=== PATIENT | female | born 1985 ===

== ENCOUNTER 2018-07-06 11:31 | Emergency (ER) | payer OTHER ==
[2018-07-06 11:32] VITALS: BMI 23.8
[2018-07-06 11:46] VITALS: O2SAT 100
[2018-07-06] MEDS ORDERED: Dextrose 5%/0.45% NS 1,000 ML IV SCH (14:00)
[2018-07-06 14:04] LABS: BASO % 0.4 % (0.0-2.0); EOS # 0.1 K/uL (0.0-0.7); EOS % 0.7 % (0.0-4.0); HEMOGLOBIN 13.7 g/dL (11.0-16.0); LYMPH # 2.8 K/uL (1.0-4.3); LYMPH % 36.3 % (20.0-40.0); MEAN CELL VOLUME 87.9 fL (81.0-99.0); MEAN CORPUSCULAR HEMOGLOBIN 29.4 pg (27.0-31.0); MEAN CORPUSCULAR HGB CONC 33.5 g/dL (33.0-37.0); MEAN PLATELET VOLUME 8.3 fL (7.2-11.7); MONO # 0.6 K/uL (0.0-0.8); MONO % 7.1 % (0.0-10.0); NEUT # 4.4 K/uL (1.8-7.0); NEUT % 55.5 % (50.0-75.0); RBC 4.66 Mil/uL (3.80-5.20); RED CELL DISTRIBUTION WIDTH 14.3 % (11.5-14.5); WHITE BLOOD COUNT 7.8 K/uL (4.8-10.8)
[2018-07-06 14:15] LABS: SQUAMOUS EPITHIAL < 1 /hpf (0-5); URINE BACTERIA RARE (<OCC); URINE BILIRUBIN NEGATIVE (NEGATIVE); URINE BLOOD 1+ (NEGATIVE); URINE CLARITY Clear (Clear); URINE COLOR Colorless (YELLOW); URINE GLUCOSE (UA) NORMAL (Normal); URINE LEUKOCYTE ESTERASE NEG Leu/uL (Negative); URINE PROTEIN NEGATIVE (NEGATIVE); URINE UROBILINOGEN NORMAL mg/dL (0.2-1.0)
[2018-07-06 14:18] LABS: ALB/GLOB RATIO 1.3 (1.0-2.1); ALBUMIN 4.1 g/dL (3.5-5.0); ALT/SGPT 27 U/L (9-52); AST/SGOT 25 U/L (14-36); BLOOD UREA NITROGEN 4 mg/dL (7-17); CALCIUM 8.9 mg/dl (8.6-10.4); GFR NON-AFRICAN AMERICAN > 60
[2018-07-06] MEDS ORDERED: Dextrose 5%/0.45% NS 1,000 ML IV ONE (14:58)
--- NOTE | 2018-07-06 15:24 | RAD ---
HISTORY: sob COMPARISON: None available TECHNIQUE: Chest, one view. FINDINGS: Examination limited by habitus and hypoinflation. LUNGS: No focal consolidation. Please note that chest x-ray has limited sensitivity for the detection of pulmonary masses. PLEURA: No significant pleural effusion identified. No definite pneumothorax . CARDIOVASCULAR: Heart size appears within normal limits. No significant atherosclerotic calcification present. OSSEOUS STRUCTURES: No acute osseous abnormality identified. VISUALIZED UPPER ABDOMEN: Unremarkable. OTHER FINDINGS: None. IMPRESSION: No focal consolidation.
--- NOTE | 2018-07-06 16:05 | C.PDOC ---
History Of Present Illness 32 y/o female, 8 weeks , presents to the ER complaining of intermittent SOB and generalized weakness. Patient states that she feels SOB only at certain times. Patient notes that she also has nausea. She reports that she was e valuated x1 by , she is in the process of obtaining [facility] for future follow- ups. She was also evaluated in [place] ER and she was prescribed anti nausea medication, which later found out that her friend didn't fill for her. Denies having fever, chills, cough, vomiting, abdominal pain, vaginal bleeding, and recent surgeries. no prolonged immobilization. Time Seen by Provider: 07/06/18 12:54 Chief Complaint (Nursing): GI Problem History Per: Regulatory Affairs Intern (Hr Payroll Coordinator # [id number]) History/Exam Limitations: no limitations Onset/Duration Of Symptoms: Days Current Symptoms Are (Timing): Still Present Severity: Moderate Past Medical History Reviewed: Historical Data, Nursing Documentation, Vital Signs Vital Signs: Last Vital Signs Temp 97.8 F 07/06/18 11:41 Pulse 88 07/06/18 11:41 Resp 16 07/06/18 11:41 BP 117/80 07/06/18 11:41 Pulse Ox 100 07/06/18 11:41 - Medical History PMH: Hyperthyroidism Denies: Chronic Kidney Disease Surgical History: No Surg Hx Family History: States: No Known Family Hx - Social History Hx Tobacco Use: No Hx Alcohol Use: No Hx Substance Use: No - Immunization History Hx Tetanus Toxoid Vaccination: No Hx Influenza Vaccination: No Hx Pneumococcal Vaccination: No Review Of Systems Constitutional: Positive for: Weakness. Negative for: Fever, Chills Cardiovascular: Negative for: Chest Pain Respiratory: Positive for: Shortness of Breath. Negative for: Cough Gastrointestinal: Positive for: Nausea. Negative for: Vomiting, Abdominal Pain Genitourinary: Negative for: Vaginal Bleeding Physical Exam - Physical Exam Appears: Non-toxic, No Acute Distress Skin: Normal Color, Warm, Dry Head: Atraumatic, Normacephalic Eye(s): bilateral: Normal Inspection Nose: Normal Oral Mucosa: Moist Neck: Supple Chest: Symmetrical Cardiovascular: Rhythm Regular Respiratory: Normal Breath Sounds, No Rales, No Rhonchi, No Wheezing Gastrointestinal/Abdominal: Soft, No Tenderness, No Guarding, No Rebound Neurological/Psych: Oriented x3, Normal Speech, Normal Cognition ED Course And Treatment - Laboratory Results Result Diagrams: 07/06/18 14:00 07/06/18 14:00 Lab Results: Total Bilirubin 0.8 mg/dL (0.2-1.3) 07/06/18 14:00 AST 25 U/L (14-36) 07/06/18 14:00 ALT 27 U/L (9-52) 07/06/18 14:00 Alkaline Phosphatase 48 U/L (38-126) 07/06/18 14:00 Total Protein 7.2 g/dL (6.3-8.3) 07/06/18 14:00 Albumin 4.1 g/dL (3.5-5.0) 07/06/18 14:00 Globulin 3.1 gm/dL (2.2-3.9) 07/06/18 14:00 Albumin/Globulin Ratio 1.3 (1.0-2.1) 07/06/18 14:00 Urine Color Colorless (YELLOW) 07/06/18 14:00 Urine Clarity Clear (Clear) 07/06/18 14:00 Urine pH 7.0 (5.0-8.0) 07/06/18 14:00 Ur Specific [place] 1.002 (1.003-1.030) L 07/06/18 14:00 Urine Protein Negative mg/dL (NEGATIVE) 07/06/18 14:00 Urine Glucose (UA) Normal mg/dL (Normal) 07/06/18 14:00 Urine Ketones Negative mg/dL (NEGATIVE) 07/06/18 14:00 Urine Blood 1+ (NEGATIVE) H 07/06/18 14:00 Urine Nitrate Negative (NEGATIVE) 07/06/18 14:00 Urine Bilirubin Negative (NEGATIVE) 07/06/18 14:00 Urine Urobilinogen Normal mg/dL (0.2-1.0) 07/06/18 14:00 Ur Leukocyte Esterase Neg Leonor/uL (Negative) 07/06/18 14:00 Urine WBC (Auto) < 1 /hpf (0-5) 07/06/18 14:00 Urine RBC (Auto) 1 /hpf (0-3) 07/06/18 14:00 Ur Squamous Epith Cells < 1 /hpf (0-5) 07/06/18 14:00 Urine Bacteria Rare (<OCC) 07/06/18 14:00 Beta HCG, Quant 51087.00 mIU/ML 07/06/18 14:00 O2 Sat by Pulse Oximetry: 100 (RA) Pulse Ox Interpretation: Normal - Other Rad CXR X-Ray: Viewed By Me, Read By Radiologist Interpretation: HISTORY: sob. COMPARISON: None available. TECHNIQUE: Chest, one view. FINDINGS: Examination limited by habitus and hypoinflation. LUNGS: No focal consolidation. Please note that chest x-ray has limited sensitivity for the detection of pulmonary masses. PLEURA: No significant pleural effusion identified. No definite pneumothorax . CARDIOVASCULAR: Heart size appears within normal limits. No significant atherosclerotic calcification present. OSSEOUS STRUCTURES: No acute osseous abnormality identified. VISUALIZED UPPER ABDOMEN: Unremarkable. OTHER FINDINGS: None. IMPRESSION: No focal consolidation. 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 Pt was informed that is a risk factor given her SOB. and angio chest for pe protocol was recommmended, however she states that she has intermittent SOB only and she declined to have the CT Scan. Pt was informed about the possible risks of not undergoing the study. 1731 pt well appearing; has spoken with [employer] from [employer]; will return tomorrow to finish paperwork. pt has been given zofran feels better, is eating potato chips with no vomiting noted. Disposition Counseled Patient/Family Regarding: Studies Performed, Diagnosis, Need For Followup, Rx Given - Disposition Referrals: Garret Trinidad MD [Staff Provider] - [facility] [Outside] [facility] [Outside] Disposition: HOME/ ROUTINE Disposition Time: 17:34 Condition: IMPROVED Additional Instructions: Please stay well hydrated. Follow up with Dr Trinidad or in women's health clinic for pre- care. Take ondansetron up to three times a day before meals if needed for nausea. Return to ER for any worse symptoms, vomiting, vaginal bleeding or abdominal pain or any other concerns. Prescriptions: Ondansetron ODT [Zofran ODT] 4 mg PO TID #12 odt Instructions: - The Third Month, Nausea and Vomiting of (DC) Forms: [facility] (German), General Discharge Instructions - Clinical Impression Clinical Impression: First trimester , Morning sickness - PA / PERSONAL LINES SALES REP / Resident Statement /DO has reviewed & agrees with the documentation as recorded. - Scribe Statement The provider has reviewed the documentation as recorded by the Ferminibe Orion Peralta Provider Attestation All medical record entries made by the Ferminibcamden were at my direction and personally dictated by me. I have reviewed the chart and agree that the record accurately reflects my personal performance of the history, physical exam, medical decision making, and the department course for this patient. I have also personally directed, reviewed, and agree with the discharge instructions and disposition.
[2018-07-06 17:53] VITALS: BP 95/69; PULSE 85; RESP 18; TEMP 98.4
== END 2018-07-06 17:53 | disposition home or self-care (01) ==
LOC: C.ER 11:31
DX: O21.0 Mild hyperemesis gravidarum (principal); Z3A.08 8 weeks gestation of pregnancy
CPT/HCPCS: 71045; 80053; 81001; 84443; 84702; 85025; 96361; 96374; 99284; J2405; J7042

== ENCOUNTER 2018-07-16 11:36 | Outpatient (CLI) | payer OTHER | END 2018-07-16 11:37 | disposition home or self-care (01) | LOC: C.LAB 11:36 ==

== ENCOUNTER 2018-08-10 09:58 | Emergency (ER) | payer OTHER ==
[2018-08-10 10:02] VITALS: BMI 23.8
[2018-08-10 10:14] VITALS: BP 123/83; PULSE 72; RESP 18; TEMP 97.6; O2SAT 100
--- NOTE | 2018-08-10 10:59 | C.PDOC ---
History Of Present Illness 32 year old female, who is currently around 12.5 weeks (), presents to the ED for evaluation of constipation and rectal pain which began two days ago. 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 She has used nupercainal ointment and proctozone cream in the past with mild relief, but has not found relief of her current symptoms. Patient denies fever, chills, nausea, vomiting, abdominal pain, and dysuria at this time. Time Seen by Provider: 08/10/18 10:23 Chief Complaint (Nursing): GI Problem History Per: Patient History/Exam Limitations: no limitations Onset/Duration Of Symptoms: Days (2) Current Symptoms Are (Timing): Still Present Quality Of Discomfort: "Pain" Associated Symptoms: Constipation, Other (rectal pain ). denies: Fever, Chills, Nausea, Vomiting, Urinary Symptoms (dysuria ) Additional History Per: Patient Abnormal Vaginal Bleeding: No : 2 Para: 1 Past Medical History Reviewed: Historical Data, Nursing Documentation, Vital Signs Vital Signs: Last Vital Signs Temp 97.6 F 08/10/18 10:08 Pulse 72 08/10/18 10:08 Resp 18 08/10/18 10:08 BP 123/83 08/10/18 10:08 Pulse Ox 100 08/10/18 10:08 - Medical History PMH: Hyperthyroidism Denies: Chronic Kidney Disease Surgical History: No Surg Hx Family History: States: Unknown Family Hx - Social History Hx Tobacco Use: No Hx Alcohol Use: No Hx Substance Use: No - Immunization History Hx Tetanus Toxoid Vaccination: No Hx Influenza Vaccination: No Hx Pneumococcal Vaccination: No Review Of Systems Constitutional: Negative for: Fever, Chills Gastrointestinal: Positive for: Constipation, Rectal Pain. Negative for: Nausea, Vomiting, Abdominal Pain Genitourinary: Negative for: Dysuria Physical Exam - Physical Exam Appears: Non-toxic, No Acute Distress Skin: Normal Color, Warm, Dry Head: Atraumatic, Normacephalic Eye(s): bilateral: Normal Inspection Oral Mucosa: Moist Neck: Supple Chest: Symmetrical, No Deformity, No Tenderness Cardiovascular: Rhythm Regular, No Murmur Respiratory: Normal Breath Sounds, No Rales, No Rhonchi, No Wheezing Gastrointestinal/Abdominal: Soft, No Tenderness, No Guarding, No Rebound Rectal: Other (One linear fissure internally, that is less than 1mm in size, at os of anus. no active bleeding or drainage noted. ) Extremity: Normal ROM, Capillary Refill (less than 2 seconds ) Neurological/Psych: Oriented x3, Normal Speech, Normal Cognition ED Course And Treatment O2 Sat by Pulse Oximetry: 100 Medical Decision Making Medical Decision Making: Impression: 32 year old female with constipation and rectal pain Progress: On reassessment, patient is resting comfortably, showing no signs of distress and is stable for discharge. Start stool softeners daily, Vit A&D daily as lubricant, and continue sitz bath and proctozone to anus to help alleviate pain while defecating Patient is advised to follow up in clinic Referred to Dr. Fritz for further evaluation of anal fissures Patient verbalized understanding of plan and is in agreement Return to ED if symptoms persist or worsen Disposition - Disposition Referrals: at [facility] [Outside] Angel Fritz MD [Staff Provider] - Disposition: HOME/ ROUTINE Disposition Time: 10:54 Condition: STABLE Additional Instructions: SHAHEED MARIN, thank you for letting us take care of you today. Your provider was Corin Cain MD/Rhoda Sun PA-C and you were treated for Constipation. The emergency medical care you received today was directed at your acute symptoms. If you were prescribed any medication, please fill it and take as directed. It may take several days for your symptoms to resolve. Return to the Emergency Department if your symptoms worsen, do not improve, or if you have any other problems. Please contact your doctor or call one of the physicians/clinics you have been referred to that are listed on the Patient Visit Information form that is included in your discharge packet. Bring any paperwork you were given at discharge with you along with any medications you are taking to your follow up visit. Our treatment cannot replace ongoing medical care by a primary care provider outside of the emergency department. Thank you for allowing the [facility] team to be part of your care today. Prescriptions: Docosahexanoic Acid [ Dha] 200 mg PO DAILY #30 capsule Docusate [Colace] 100 mg PO BID PRN #30 cap PRN Reason: Constipation Vitamin A/D [Vitamin A&D] 60 applic TP Q4 #1 tube Instructions: High Fiber Diet, Constipation, Adult (DC), How to Do a Sitz Bath Forms: [facility] (Yakut) - Clinical Impression Clinical Impression: Rectal pain, Constipation during in first trimester - PA / BARTACKER / Resident Statement MD/DO has reviewed & agrees with the documentation as recorded. - Scribe Statement The provider has reviewed the documentation as recorded by the Scribe (Katy Lincoln) All medical record entries made by the Scribe were at my direction and personally dictated by me. I have reviewed the chart and agree that the record accurately reflects my personal performance of the history, physical exam, medical decision making, and the department course for this patient. I have also personally directed, reviewed, and agree with the discharge instructions and disposition.
== END 2018-08-10 11:40 | disposition home or self-care (01) ==
LOC: C.ER 09:58
DX: O26.891 Other specified pregnancy related conditions, first trimester (principal); K59.00 Constipation, unspecified; K62.89 Other specified diseases of anus and rectum; Z3A.12 12 weeks gestation of pregnancy

== ENCOUNTER 2018-09-21 11:04 | Outpatient (CLI) | payer OTHER | END 2018-09-21 11:05 | disposition home or self-care (01) | LOC: C.LAB 11:04 | DX: O09.32 Supervision of pregnancy with insufficient antenatal care, second trimester (principal) ==

== ENCOUNTER 2018-10-16 14:39 | Emergency (ER) | payer OTHER ==
--- NOTE | 2018-10-16 16:22 | OBDCSUM ---
Datetime: 10/16/2018 16:19 Discharged to, Provider: Other Follow up at, Provider: Erick Chin Disch Instr Diet: Regular Discharge Time: 10/16/2018 16:19 Follow up in weeks, Provider: next appointment Discharge Comment, Provider: Pt transferred to ED Discharge Diagnosis Prov Other: Leg pain, cough and sore throat at 22+5 weeks
--- NOTE | 2018-10-16 16:22 | OBHP ---
Datetime: 10/16/2018 15:46 IP Adm Impression: , intrauterine IP Chief Complaint Other: Leg pain, cough at 22+ weeks IP Admit Plan Other: Transfer to ED Admit Comment, IP Provider: 32 yo at 22+5 wks w/ EDC 02/14/2019 c/o pain in both of her legs , 5/6, not constant, started yesterday, took 2 tylenol and 1 advil allergy and congestion and the med s gave her relief. Pt reports that she is here to check the baby because of the meds she took. Pt a lso c/o sore throat and cough that started yesterday. Pt also c/o pain under left breast that comes and goes, occurs at night. Pt denies dysuria, nausea, vomiting, diarrhea, contractions, VB, LOF, con gestion. Pt reports that she has not yet felt the baby move yet. All other systems reviewed and neg ative. 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 FHT reassuring. Pt instructed to avoid advil, sudafed, aleve and told to clear all new medicationsw/ her OB. Pt sent down to ED for further evaluation. Extremities - PN: Normal Abdomen - PN: Normal Back - PN: Normal Lungs - PN: Normal Heart - PN: Normal Neurologic - PN: Normal General - PN: Normal FHR - Baseline A Provider: 150's Contraction Comments Provider: None EGA AdmitDate IP: 22.5 Vital Signs Provider: Reviewed IP Chief Complaint: Other NICHD Variability Prov Fetus A: Moderate 6-25bpm Genitourinary Exam: Not Done
[2018-10-16 16:32] VITALS: RESP 20
--- NOTE | 2018-10-16 16:42 | C.PDOC ---
History Of Present Illness Patient is a 32 year old female, 5 months and , who presents to the ED for cough, cold, congestion present over the past day. Patient states that she saw her OBGYN Dr. Parson today and was cleared upstairs by the OBGYN dep artment for further evaluation of her symptoms. Patient also reports a low grade fever yesterday, but none today. She denies any signs of sinus pressure, neck stiffness, headache, abdominal pain, back pain, falls, trauma, constipation, diarrhea, dark or bloody stools, rashes, or vaginal discharge. Time Seen by Provider: 10/16/18 16:14 Chief Complaint (Nursing): Cough, Cold, Congestion History Per: Patient History/Exam Limitations: no limitations Onset/Duration Of Symptoms: Days (1) Current Symptoms Are (Timing): Still Present Associated Symptoms: Fever, Cough, Nasal Congestion. denies: Chills, Neck Pain, Diarrhea Recent travel outside of the [place]: No Additional History Per: Patient Past Medical History Reviewed: Historical Data, Nursing Documentation, Vital Signs - Medical History PMH: Hyperthyroidism Denies: Chronic Kidney Disease Surgical History: No Surg Hx Family History: States: Unknown Family Hx - Social History Hx Tobacco Use: No Hx Alcohol Use: No Hx Substance Use: No - Immunization History Hx Tetanus Toxoid Vaccination: No Hx Influenza Vaccination: No Hx Pneumococcal Vaccination: No Review Of Systems Constitutional: Positive for: Fever. Negative for: Chills, Sweats, Weakness, Malaise Eyes: Negative for: Pain, Vision Change, Conjunctivae Inflammation, Eyelid In flammation, Redness ENT: Negative for: Ear Pain, Ear Discharge, Nose Pain, Nose Discharge, Nose Congestion, Mouth Pain, Mouth Swelling, Throat Pain, Throat Swelling Cardiovascular: Negative for: Chest Pain, Palpitations, Orthopnea, Edema, Light Headedness Respiratory: Positive for: Cough. Negative for: Shortness of Breath, Hemoptysis, SOB with Excertion, Sputum, Wheezing Gastrointestinal: Negative for: Nausea, Vomiting, Abdominal Pain, Diarrhea, Constipation, Melena Genitourinary: Negative for: Dysuria, Frequency, Incontinence, Hematuria, Vaginal Discharge, Vaginal Bleeding Musculoskeletal: Negative for: Neck Pain, Shoulder Pain Skin: Negative for: Rash, Lesions Neurological: Negative for: Weakness, Numbness, Headache Psych: Negative for: Anxiety, Depression, Psychosis, Suicidal ideation Physical Exam - Physical Exam Appears: Well, Non-toxic, No Acute Distress Skin: Warm, Dry Head: Atraumatic, Normacephalic Eye(s): bilateral: Normal Inspection, PERRL, EOMI Ear(s): Bilateral: Normal Nose: Normal, No Flaring, No Discharge, No Epistaxis, No Deformity, No Septal Hematoma Oral Mucosa: Moist, No Drooling Tongue: Normal Appearing Lips: Normal Appearing Teeth: Normal Dentition Throat: Normal, No Erythema, No Exudate, No Drooling Neck: Normal, Normal ROM, Trachea Midline, No Midline Cervical Tenderness, Supple, Other (No meningeal signs- negative kernig's and brudzinskis) Lymphatic: Adenopathy (no posterior chain or anterior cervical chain adenopathy) Chest: Symmetrical Cardiovascular: Rhythm Regular, No Edema, No Friction Rub, No Murmur, No JVD Respiratory: Normal Breath Sounds, No Rales, No Rhonchi, No Stridor, No Wheezing Gastrointestinal/Abdominal: Normal Exam, Soft, No Tenderness, No Distention, No Rebound Back: Normal Inspection, No CVA Tenderness, No Vertebral Tenderness Extremity: Normal ROM, No Tenderness, No Pedal Edema, No Calf Tenderness, Capillary Refill (normal), No Swelling Extremity: Bilateral: Atraumatic, No Pedal Edema, Normal Color And Temperature Pulses: Left Radial: Normal, Right Radial: Normal, Left Dorsalis Pedis: Normal, Right Dorsalis Pedis: Normal Neurological/Psych: Oriented x3, Normal Speech, Normal Cognition, Normal Cranial Nerves, No Cerebellar Signs, Normal Motor Gait: Steady ED Course And Treatment - Laboratory Results Result Diagrams: 10/16/18 17:07 10/16/18 17:07 Medical Decision Making Medical Decision Making: Patient is a 32 year old female, 5 months and , who presents to the ED for cough, cold, congestion present over the past day. Impression: Viral URI 1654 pt also noted b/l LE pain, negative homans signs, no hx of blood clots, no fall or trauma, no swelling noted. likely viral syndrome of b/l leg pain. Pt notes that pain much improved, resolved after tylenol this am. 1731 labs largely unremarkable pending UA pt in NAD [address] Wood upstairs: cleared via OBGYN no cvat. UTI on labs. pt notes improvement of symptoms, denies any leg pain at this time. throat remains clear and pt tolerating solids and liquids well per pt. uvula midline and no massess. No erythema noted. Serology unremarkble lungs remain cta b/l will rx uti w/ abx pt agreeable to plan, given return indications and f/u. Pt agreeable to plan Disposition - Disposition Referrals: [facility] [Outside] [facility] [Outside] [facility] [Outside] [facility] [Outside] Dimitri Serrano MD [Staff Provider] - Herberth Waldron DO [Non-Staff] - Disposition: HOME/ ROUTINE Disposition Time: 18:51 Condition: STABLE Additional Instructions: SHAHEED MARIN, thank you for letting us take care of you today. Your provider was Pj Fleming and you were treated for COUGH. The emergency medical care you received today was directed at your acute symptoms. If you were prescribed any medication, please fill it and take as directed. It may take several days for your symptoms to resolve. Return to the Emergency Department if your symptoms worsen, do not improve, or if you have any other problems. Please contact your doctor or call one of the physicians/clinics you have been referred to that are listed on the Patient Visit Information form that is included in your discharge packet. Bring any paperwork you were given at discharge with you along with any medications you are taking to your follow up visit. Our treatment cannot replace ongoing medical care by a primary care provider outside of the emergency department. Thank you for allowing the [facility] team to be part of your care today. If you had an X-Ray or CT scan: A Radiologist will review the ED reading if any change in treatment is needed we will contact you. If you had a blood, urine, or wound culture: It will take several days for the results, if any change in treatment is needed we will contact you. If you had an STI test: It will take 48 hours for the results. Please call after 1 week if you have not heard back. Prescriptions: Cephalexin [Keflex] 500 mg PO BID 7 Days #14 capsule Instructions: Urinary Tract Infection, Adult (DC), Viral Upper Respiratory Infection, Adult (DC) Forms: [facility] (Somali) - Clinical Impression Clinical Impression: UTI (urinary tract infection), Viral URI - Scribe Statement The provider has reviewed the documentation as recorded by the Ferminibe Radha Thomas All medical record entries made by the Sree were at my direction and personally dictated by me. I have reviewed the chart and agree that the record accurately reflects my personal performance of the history, physical exam, medical decision making, and the department course for this patient. I have also personally directed, reviewed, and agree with the discharge instructions and disposition.
[2018-10-16 17:10] LABS: BASO % 0.5 % (0.0-2.0); EOS % 0.5 % (0.0-4.0); HEMOGLOBIN 12.1 g/dL (11.0-16.0); LYMPH # 1.4 K/uL (1.0-4.3); MEAN CELL VOLUME 88.9 fL (81.0-99.0); MEAN CORPUSCULAR HGB CONC 33.8 g/dL (33.0-37.0); MEAN PLATELET VOLUME 8.7 fL (7.2-11.7); MONO # 0.8 K/uL (0.0-0.8); NEUT # 5.8 K/uL (1.8-7.0); RBC 4.03 Mil/uL (3.80-5.20); RED CELL DISTRIBUTION WIDTH 13.8 % (11.5-14.5); WHITE BLOOD COUNT 8.1 K/uL (4.8-10.8)
[2018-10-16 17:25] LABS: ALB/GLOB RATIO 1.1 (1.0-2.1); ALBUMIN 3.6 g/dL (3.5-5.0); ALT/SGPT 35 U/L (9-52); AST/SGOT 29 U/L (14-36); BLOOD UREA NITROGEN 3 mg/dL (7-17); CALCIUM 9.4 mg/dl (8.6-10.4); GFR NON-AFRICAN AMERICAN > 60
[2018-10-16 18:22] LABS: SQUAMOUS EPITHIAL 17 /hpf (0-5); URINE BACTERIA MOD (<OCC); URINE BILIRUBIN NEGATIVE (NEGATIVE); URINE BLOOD NEGATIVE (NEGATIVE); URINE CLARITY Hazy (Clear); URINE COLOR Yellow (YELLOW); URINE GLUCOSE (UA) NORMAL (Normal); URINE LEUKOCYTE ESTERASE 2+ Leu/uL (Negative); URINE PROTEIN NEGATIVE (NEGATIVE); URINE UROBILINOGEN NORMAL mg/dL (0.2-1.0)
[2018-10-16 19:01] VITALS: PULSE 107
[2018-10-16 23:00] VITALS: BP 101/68; TEMP 98.6; O2SAT 99
== END 2018-10-16 19:00 | disposition home or self-care (01) ==
LOC: C.EROB 14:39 → C.ER 14:39
DX: O23.42 Unspecified infection of urinary tract in pregnancy, second trimester (principal); Z3A.22 22 weeks gestation of pregnancy

== ENCOUNTER 2018-11-03 10:16 | Outpatient (CLI) | payer OTHER | END 2018-11-03 10:17 | disposition home or self-care (01) | LOC: C.LAB 10:16 | DX: Z34.92 Encounter for supervision of normal pregnancy, unspecified, second trimester (principal) ==